=== PATIENT | female | born 1970 | race Caucasian/White ===

== ENCOUNTER 2023-12-16 10:27 | Emergency (ER) | payer OTHER ==
[2023-12-16 10:43] VITALS: BP 111/74; PULSE 94; RESP 16; TEMP 98.8; BMI 19.7
== END 2023-12-16 11:11 | disposition home or self-care (01) ==
LOC: SUPCPDRO 10:27 → FER 10:27
DX: K08.89 Other specified disorders of teeth and supporting structures (principal)
CPT/HCPCS: 99283-25